=== PATIENT | female | born 1935 | race Caucasian/White ===

== ENCOUNTER 2018-05-01 15:05 | Emergency (ER) | payer OTHER, MEDICAID ==
[2018-05-01 16:32] VITALS: BP 138/81
== END 2018-05-01 16:32 | disposition home or self-care (01) ==
LOC: ED 15:05
DX: L03.113 Cellulitis of right upper limb (principal); I10 Essential (primary) hypertension; E11.9 Type 2 diabetes mellitus without complications
CPT/HCPCS: J0690

== ENCOUNTER 2018-12-29 22:43 | Emergency (ER) | payer OTHER, MEDICAID ==
[~2018-12-29] VITALS: Ht 167.6 cm; Wt 72.6 kg
[2018-12-29 22:48] VITALS: Ht 167.6 cm; Wt 72.6 kg
[2018-12-30 00:21] VITALS: BP 121/61
== END 2018-12-30 00:21 | disposition home or self-care (01) ==
LOC: ED 22:43
DX: S50.11XA Contusion of right forearm, initial encounter (principal); S40.011A Contusion of right shoulder, initial encounter; S60.031A Contusion of right middle finger without damage to nail, initial encounter; I10 Essential (primary) hypertension; E11.9 Type 2 diabetes mellitus without complications; V98.8XXA Other specified transport accidents, initial encounter; Y93.89 Activity, other specified; Y92.89 Other specified places as the place of occurrence of the external cause; Y99.8 Other external cause status